=== PATIENT | female | born 1955 | race Caucasian/White ===

== ENCOUNTER 2016-05-10 22:41 | Emergency (ER) | payer OTHER ==
[~2016-05-10] VITALS: Ht 160 cm; Wt 91.2 kg
[~2016-05-10 22:41] MED LIST: COZA50TA PO; CYCL5TAB PO; HYDR-2768 PO; LEVO.075 PO; LOVA40TA PO; NAPR500 PO; NORT1TAB3 PO; POTA-243 PO; TOPR25TA2 PO
[2016-05-10 22:53] VITALS: BP 137/69; PULSE 73; RESP 18; TEMP 98.7; O2SAT 98
[2016-05-10] MEDS ORDERED: SODIUM CHLOR 0.9% 1000 ML INJ 1,000 ML IV SCH (23:07)
--- NOTE | 2016-05-10 23:12 | PD ---
HPI . Vomiting Chief Complaint: Abdominal Pain Time Seen by Provider: 23:01 Travel History International Travel<30 days: No Contact w/Intl Traveler<30days: No Traveled to known affect area: No History of Present Illness HPI Patient presents with nausea and vomiting that started about 12 hours prior to presentation. She states that she is vomiting about every 1-1/2 hours. She reports no associated fever or diarrhea. She is not having any urinary tract symptoms. PFSH Past Medical History High Cholesterol: Yes Diminished Hearing: No Hypertension: Yes ?: Not LMP: 2 WEEKS Past Surgical History Section: Yes Tonsillectomy: Yes Social History Alcohol Use: Yes (occasional) Tobacco Use: No Substance Use: No Allergies-Medications (Allergen,Severity, Reaction): Coded Allergies: Reglan (Verified Allergy, Unknown, Restlessness, 05/10/16) Reported Meds & Prescriptions Reported Meds & Active Scripts Active Keflex (Cephalexin) 500 Mg Cap 500 Mg PO Q8H Zofran Odt (Ondansetron Odt) 4 Mg Tab 4 Mg SL Q6HR PRN Reported Losartan (Losartan Potassium) 50 Mg Tab 50 Mg PO DAILY Fenofibrate 145 Mg Tab 145 Mg PO DAILY Metoprolol Tartrate 25 Mg Tab 25 Mg PO DAILY Levothyroxine (Levothyroxine Sodium) 75 Mcg Tab 75 Mcg PO DAILY Review of Systems Except as stated in HPI: all other systems reviewed are Neg General / Constitutional: No: Fever, Chills Gastrointestinal: Positive: Nausea, Vomiting, Abdominal Pain, No: Diarrhea Genitourinary: No: Urgency, Frequency, Dysuria Physical Exam Narrative GENERAL: Healthy-appearing 60-year-old woman who is in no acute distress. SKIN: Warm and dry. HEAD: Atraumatic. Normocephalic. EYES: Pupils equal and round. Sclera are anicteric. ENT: No nasal bleeding or discharge. Mucous membranes pink and moist. NECK: Trachea midline. Neck is supple. CARDIOVASCULAR: Regular rate and rhythm. Heart sounds are normal. RESPIRATORY: No accessory muscle use. Lungs are clear with full air movement throughout. GASTROINTESTINAL: Abdomen soft, non-tender, nondistended. MUSCULOSKELETAL: No obvious deformities. No edema. NEUROLOGICAL: Awake and alert. No obvious cranial nerve deficits. Motor grossly within normal limits. Normal speech. PSYCHIATRIC: Appropriate mood and affect; insight and judgment normal. Data Data Last Documented VS Vital Signs Date Time Temp Pulse Resp B/P Pulse Ox O2 Delivery O2 Flow Rate FiO2 05/10/16 22:53 98.7 73 18 137/69 98 Orders Complete Blood Count With Diff (05/10/16 23:07) Comprehensive Metabolic Panel (05/10/16 23:07) Lipase (05/10/16 23:07) Urinalysis - C+S If Indicated (05/10/16 23:07) Iv Access Insert/Monitor (05/10/16 23:07) Ondansetron Inj (Zofran Inj) (05/10/16 23:15) Sodium Chlor 0.9% 1000 Ml Inj (Ns 1000 M (05/10/16 23:07) Sodium Chloride 0.9% Flush (Ns Flush) (05/10/16 23:15) Electrocardiogram (05/10/16 23:07) Abdomen, Upright Only (05/10/16 23:07) Famotidine Inj (Pepcid Inj) (05/10/16 23:15) Urine Culture (05/11/16 01:20) Ceftriaxone Inj (Rocephin Inj) (05/11/16 02:15) Labs Laboratory Tests Test 05/10/16 05/11/16 23:30 01:20 White Blood Count 16.2 TH/MM3 Red Blood Count 4.50 MIL/MM3 Hemoglobin 12.7 GM/DL Hematocrit 37.5 % Mean Corpuscular Volume 83.3 FL Mean Corpuscular Hemoglobin 28.2 PG Mean Corpuscular Hemoglobin 33.8 % Concent Red Cell Distribution Width 12.8 % Platelet Count 376 TH/MM3 Mean Platelet Volume 8.0 FL Neutrophils (%) (Auto) 69.0 % Lymphocytes (%) (Auto) 24.0 % Monocytes (%) (Auto) 5.4 % Eosinophils (%) (Auto) 0.8 % Basophils (%) (Auto) 0.8 % Neutrophils # (Auto) 11.2 TH/MM3 Lymphocytes # (Auto) 3.9 TH/MM3 Monocytes # (Auto) 0.9 TH/MM3 Eosinophils # (Auto) 0.1 TH/MM3 Basophils # (Auto) 0.1 TH/MM3 CBC Comment DIFF FINAL Differential Comment Sodium Level 142 MEQ/L Potassium Level 3.4 MEQ/L Chloride Level 106 MEQ/L Carbon Dioxide Level 27.0 MEQ/L Anion Gap 9 MEQ/L Blood Urea Nitrogen 17 MG/DL Creatinine 0.76 MG/DL Estimat Glomerular Filtration 78 ML/MIN Rate Random Glucose 86 MG/DL Calcium Level 8.7 MG/DL Total Bilirubin 0.4 MG/DL Aspartate Amino Transf 8 U/L (AST/SGOT) Alanine Aminotransferase 15 U/L (ALT/SGPT) Alkaline Phosphatase 64 U/L Total Protein 6.7 GM/DL Albumin 3.2 GM/DL Lipase 123 U/L Urine Collection Type CLEAN CATCH Urine Color LACHELLE Urine Turbidity SLIGHT Urine pH 6.0 Urine Specific [place] 1.025 Urine Protein NEG mg/dL Urine Glucose (UA) NEG mg/dL Urine Ketones NEG mg/dL Urine Occult Blood SMALL Urine Nitrite NEG Urine Bilirubin NEG Urine Leukocyte Esterase SMALL Urine RBC 0-3 /hpf Urine WBC 9-14 /hpf Urine Squamous Epithelial > 8 /hpf Cells Urine Bacteria FEW /hpf Urine Mucus MOD /lpf Microscopic Urinalysis Comment CULTURE INDICATED MDM Medical Decision Making Medical Screen Exam Complete: Yes Emergency Medical Condition: Yes Medical Record Reviewed: Yes Interpretation(s) EKG shows a normal sinus rhythm with no acute ischemic change. Differential Diagnosis Differential diagnosis includes but is not limited to viral gastritis, food poisoning, pancreatitis, pneumonia, hepatitis, acute coronary syndrome Narrative Course Patient presents for evaluation and treatment of vomiting which has been present for about 12 hours. She is well-hydrated appearing. CBC has a white count of 16.2. Potassium is 3.4. LFTs and lipase are normal. Plain films are negative for obstruction. The x-ray has been independently viewed by me. Her UA is indicative of infection. She has leukocyte esterase, white blood cells and bacteria in her urine. Diagnosis Primary Impression: Vomiting Qualified Code: R11.2 - Nausea and vomiting, intractability of vomiting not specified, unspecified vomiting type Additional Impression: UTI (urinary tract infection) Qualified Code: N30.00 - Acute cystitis without hematuria Med/Other Pt SpecificInfo: Prescription(s) given Scripts Cephalexin (Keflex)500 Mg Ush762 Mg PO Q8H #21 CAP Ref 0 Prov:Yesica Reynaga MD 05/11/16 Ondansetron Odt (Zofran Odt)4 Mg Tab4 Mg SL Q6HR PRN (Nausea/Vomiting) #10 TAB Ref 0 Prov:Yesica Reynaga MD 05/11/16 Disposition: 01 DISCHARGE HOME Condition: Stable Yesica Reynaga MD May 10, 2016 23:12
[2016-05-10] MEDS ORDERED: ONDANSETRON HCL 4 MG/2 ML VIAL IVP ONE (23:15)
[2016-05-10] MEDS ORDERED: SODIUM CHLORIDE 0.9% FLUSH 5 ML FLUSH IVF PRN (23:15)
[2016-05-10] MEDS ORDERED: FAMOTIDINE 20 MG/2 ML VIAL IV PUSH ONE (23:15)
[2016-05-10] MEDS ORDERED: LEVO75TA3 PO (23:43)
[2016-05-10] MEDS ORDERED: FENO145T2 PO (23:43)
[2016-05-10] MEDS ORDERED: LOSA50TA PO (23:43)
[2016-05-10] MEDS ORDERED: METO25TA3 PO (23:43)
[2016-05-10 23:51] LABS: AUTOMATED NEUTROPHIL # 11.2 TH/MM3 (1.8-7.7); BASOPHIL # 0.1 TH/MM3 (0-0.2); BASOPHIL % 0.8 % (0.0-2.0); EOSINOPHIL # 0.1 TH/MM3 (0-0.4); EOSINOPHIL % 0.8 % (0.0-4.0); HEMATOCRIT 37.5 % (35.0-46.0); LYMPHOCYTE # 3.9 TH/MM3 (1.0-4.8); MEAN CELL VOLUME 83.3 FL (80.0-100.0); MEAN CORPUSCULAR HEMOGLOBIN 28.2 PG (27.0-34.0); MEAN CORPUSCULAR HGB CONC 33.8 % (32.0-36.0); MONO % 5.4 % (0.0-8.0); PLATELET COUNT 376 TH/MM3 (150-450); RED CELL DISTRIBUTION WIDTH 12.8 % (11.6-17.2); WHITE BLOOD COUNT 16.2 TH/MM3 (4.0-11.0)
[2016-05-11] LABS: CHLORIDE 106 MEQ/L (98-107); HEMO FLAGS DIFF FINAL; POTASSIUM 3.4 MEQ/L (3.5-5.1); SODIUM (NA) 142 MEQ/L (136-145)
[2016-05-11 00:04] LABS: ANION GAP 9 MEQ/L (5-15); BLOOD UREA NITROGEN 17 MG/DL (7-18)
--- NOTE | 2016-05-11 00:05 | RADHPO ---
EXAM DATE/TIME: 05/10/2016 23:51 [facility] COMPARISON: No previous studies available for comparison. INDICATIONS : Vomiting MEDICAL HISTORY : None. SURGICAL HISTORY : None. ENCOUNTER: Initial ACUITY: 2 days PAIN SCORE: 6/10 LOCATION: Left abdomen FINDINGS: A single erect view of the abdomen demonstrates the lower lungs to be clear. No evidence of free int raperitoneal gas. The visualized bowel loops are unremarkable. CONCLUSION: Normal examination. Kip Colindres MD on May 11, 2016 at 0:03 Board Certified Radiologist. This report was verified electronically.
[2016-05-11 00:07] LABS: ALT (GPT) 15 U/L (10-53); AST (GOT) 8 U/L (15-37); GLOMERULAR FILTRATION RATE 78 ML/MIN (>89)
[2016-05-11 00:08] LABS: TOTAL BILIRUBIN ADULT 0.4 MG/DL (0.2-1.0)
[2016-05-11 00:09] LABS: ALKALINE PHOSPHATASE 64 U/L (45-117)
[2016-05-11 01:28] LABS: BLOOD, URINE SMALL (NEG); GLUCOSE,URINE NEG (NEG); KETONE, URINE NEG (NEG); NITRITE,URINE NEG (NEG)
[2016-05-11] MEDS ORDERED: ZOFR4TAB3 SL (01:29)
[2016-05-11 01:37] LABS: METHOD OF COLLECTION CLEAN CATCH; URINE COLOR AMBER (YELLW/STRAW)
[2016-05-11 01:38] LABS: MUCUS URINE MOD /lpf (OCC); SQUAMOUS EPITHELIAL CELL URINE > 8 /hpf (0-5)
[2016-05-11 01:40] LABS: BACTERIA, URINE FEW /hpf; COMMENT (UR) CULTURE INDICATED; CULTURE IF INDICATED CULTURE INDICATED; RBC, URINE 0-3 /hpf (0-3)
[2016-05-11] MEDS ORDERED: CEPH-460 PO ×2 (02:00→02:06)
[2016-05-11] MEDS ORDERED: cefTRIAXone INJ 1,000 MG in SODIUM CHLORIDE 0.9% INJ 100 ML IV ONE (02:15)
[2016-05-11 03:13] VITALS: BP 136/63
[2016-05-11] MEDS ORDERED: ONDANSETRON HCL 4 MG/2 ML VIAL IV PUSH ONE (03:15)
--- NOTE | 2016-05-11 10:37 | EKG ---
Date Performed: 05/11/2016 Time Performed: 00:04:52 PTAGE: 60 years EKG: Sinus rhythm Possible inferior infarct - age undetermined Abnormal ECG NO PREVIOUS TRACING DOCTOR: Jonathan Galvez Interpretating Date/Time 05/11/2016 10:34:18
== END 2016-05-11 03:16 | disposition home or self-care (01) ==
LOC: PHED 22:41
DX: R11.2 Nausea with vomiting, unspecified (principal); N30.00 Acute cystitis without hematuria; E78.00 Pure hypercholesterolemia, unspecified; I10 Essential (primary) hypertension; R94.31 Abnormal electrocardiogram [ECG] [EKG]
CPT/HCPCS: 74000; 80053; 81001; 83690; 85025; 87086; 93005; 96361; 96365; 96375; 96376; 99284; J0696; J2405; J7030